=== PATIENT | female | born 1935 | race Caucasian/White ===

== ENCOUNTER 2018-11-26 17:06 | Inpatient (IN) ==
[2018-11-26] MEDS ORDERED: GLUCAGON 1 MG VIAL IM PRN (20:13)
[2018-11-26] MEDS ORDERED: ACETAMINOPHEN 325 MG TABLET PO PRN (20:13)
[2018-11-26] MEDS ORDERED: DOCUSATE SODIUM 100 MG CAPSULE PO PRN (20:13)
[2018-11-26] MEDS ORDERED: DEXTROSE 50% 25 GM/50 ML VIAL IV PRN (20:13)
[2018-11-26] MEDS ORDERED: ENOXAPARIN 30 MG/0.3 ML SYRINGE SUBCUT SCH (20:30)
[2018-11-26 20:53] LABS: Basophils # 0.1 10*3/uL (0.0-0.2); Basophils % 0.3 % (0.0-0.8); Hematocrit 35.8 VOL% (35.7-47.0); Hemoglobin 11.4 GM/DL (12.0-16.0); Immature Granulocytes % 1.1 %; Immature Granulocytes Absolute 0.35 #; Lymphocytes # 1.4 10*3/uL (1.4-4.0); Lymphocytes % 4.3 % (21.3-54.2); Mean Corpuscular HGB Conc 31.8 GM/DL (32-36); Mean Corpuscular Volume 90.6 FL (87-102); Monocytes % 5.2 % (1.7-12.7); Neutrophils % 89.1 % (38.7-73.9); Platelet Count 209 T/CUMM (130-400); Red Blood Count 3.95 MC/CUMM (3.8-5.5); Red Cell Distribution Width 14.2 % (9.3-17.3); White Blood Count 31.5 T/CUMM (4-12)
[2018-11-26] MEDS ORDERED: DILTIAZEM 50 MG/10 ML VIAL IV ONE (20:57)
[2018-11-26 21:03] LABS: Apearance,Urine CLOUDY (Clear); Bacteria,Urine Many /HPF (Few); Bilirubin,Urine Negative (Negative); Blood, Urine Moderate mg/dL (Negative); Glucose,Urine (UA) >=500 mg/dL (Negative); Ketones,Urine 5 mg/dL (Negative); Mucus,Urine Occasional /LPF (Occasional); Nitrite,Urine Positive (Negative); Protein,Urine 100 MG/DL; RBC,Urine 52 /HPF (0-4); Urine Color Yellow (Yellow); Urine Specific Gravity 1.015 (1.001-1.035); Urine Urobilinogen < 2.0 EU/DL (0.2-1.0); WBC,Urine 770 /HPF (0-6)
[2018-11-26 21:30] LABS: Lymphocytes 3 % (20-55); Segmented Neutrophils 94 % (50-85); Total Cells Counted 100
[2018-11-26] MEDS ORDERED: ENOXAPARIN 100 MG/ML SYRINGE SUBCUT SCH (21:30)
[2018-11-26 21:31] LABS: Platelet Estimate Normal; Troponin I 0.075 NG/ML (0.00-0.045)
[2018-11-26 21:32] LABS: Anisocytosis Slight
[2018-11-26] MEDS ORDERED: INFLUENZA VIRUS VACCINE 0.5 ML SYRINGE IM ONE (21:39)
[2018-11-26] MEDS: MEROPENEM 500 MG in SODIUM CHLORIDE 0.9% 100 ML IV SCH (22:11)
[2018-11-26] MEDS: SODIUM CHLORIDE 0.9% 1,000 ML IV SCH (22:11)
[2018-11-26] MEDS: dilTIAZem Drip 125 MG/125 ML PREMIX IV SCH (22:20)
[2018-11-26] MEDS: INSULIN REGULAR 100 UNIT/ML SUBCUT SCH (22:29)
[2018-11-26] MEDS ORDERED: VANCOMYCIN INJ 500 MG in SODIUM CHLORIDE 0.9% 100 ML IV PRN (22:33)
[2018-11-26] MEDS ORDERED: VANCOMYCIN INJ 2,000 MG in SODIUM CHLORIDE 0.9% 500 ML IV ONE (23:00)
[2018-11-27] MEDS: FLUCONAZOLE INJ 100 MG in IV BAG 1 EACH IV SCH ×2 (01:34→21:45)
[2018-11-27 05:05] LABS: Basophils # 0.2 10*3/uL (0.0-0.2); Basophils % 0.6 % (0.0-0.8); Hematocrit 31.3 VOL% (35.7-47.0); Immature Granulocytes % 1.5 %; Immature Granulocytes Absolute 0.46 #; Lymphocytes # 2.6 10*3/uL (1.4-4.0); Lymphocytes % 8.2 % (21.3-54.2); Mean Corpuscular HGB Conc 31.9 GM/DL (32-36); Mean Corpuscular Volume 90.7 FL (87-102); Monocytes % 6.5 % (1.7-12.7); Neutrophils % 83.2 % (38.7-73.9); Platelet Count 182 T/CUMM (130-400); Red Blood Count 3.45 MC/CUMM (3.8-5.5); Red Cell Distribution Width 14.3 % (9.3-17.3); White Blood Count 31.3 T/CUMM (4-12)
[2018-11-27 05:42] LABS: Alanine Aminotransferase 23 U/L (13-56); Albumin 3.1 G/DL (3.4-5.0); Alkaline Phosphatase 82 U/L (45-117); Aspartate Amino Transferase 23 U/L (0-37); Blood Urea Nitrogen 39 MG/DL (7-18); Calcium 8.1 MG/DL (8.5-10.1); Estimated Glom Filtration Rate 23 ML/MIN; Glucose 410 MG/DL (74-106); Osmolality,Calculated 291.4 MOS/KG (273-304); Total Protein 7.5 G/DL (6.4-8.3)
[2018-11-27 05:42] LABS: Hypochromasia 1+; Lymphocytes 12 % (20-55); Platelet Estimate Adequate; Segmented Neutrophils 83 % (50-85); Total Cells Counted 100
[2018-11-27] MEDS: MEROPENEM 500 MG in SODIUM CHLORIDE 0.9% 100 ML IV SCH ×2 (05:42→18:27)
[2018-11-27 05:43] LABS: Calcium 8.2 MG/DL (8.5-10.1); Osmolality,Calculated 286.2 MOS/KG (273-304); Thyroid Stimulating Hormone 0.45 uIU/ml (0.358-3.74)
[2018-11-27] MEDS ORDERED: MAGNESIUM SULF RIDER 2 GM in PREMIX 1 EACH IV ONE (05:46)
[2018-11-27] MEDS ORDERED: MAGNESIUM SULF RIDER 4 GM in PREMIX 1 EACH IV ONE (05:47)
[2018-11-27] MEDS: SODIUM CHLORIDE 0.9% 1,000 ML IV SCH ×3 (06:30→19:17)
[2018-11-27] MEDS: MAGNESIUM SULF RIDER 2 GM in PREMIX 1 EACH IV PRN ×2 (08:27→10:21)
[2018-11-27] MEDS: INSULIN REGULAR 100 UNIT/ML SUBCUT SCH ×4 (08:29→20:20)
[2018-11-27] MEDS ORDERED: DIGOXIN 0.125 MG TABLET PO SCH (09:00)
[2018-11-27] MEDS: ONDANSETRON 4 MG/2 ML VIAL IV PRN ×2 (09:05→11:30)
[2018-11-27] MEDS: INSULIN GLARGINE 100 UNIT/ML SUBCUT SCH (09:05)
[2018-11-27] MEDS: ASPIRIN EC 81 MG TABLET PO SCH (10:10)
[2018-11-27] MEDS: DONEPEZIL 10 MG TABLET PO SCH (10:10)
[2018-11-27] MEDS: METOPROLOL TARTRATE 25 MG TABLET PO SCH ×2 (10:11→20:21)
[2018-11-27] MEDS ORDERED: SODIUM CHLORIDE 0.9% 500 ML IV ONE (11:38)
[2018-11-27] MEDS: DOBUTamine 500 MG/250 ML PREMIX IV PRN (11:41)
[2018-11-27] MEDS: ENOXAPARIN 100 MG/ML SYRINGE SUBCUT SCH (20:21)
[2018-11-28] MEDS: dilTIAZem Drip 125 MG/125 ML PREMIX IV SCH ×2 (01:00→21:47)
[2018-11-28] MEDS: DOBUTamine 500 MG/250 ML PREMIX IV PRN (01:20)
[2018-11-28] MEDS: SODIUM CHLORIDE 0.9% 1,000 ML IV SCH ×3 (02:55→11:36)
[2018-11-28 04:46] LABS: Basophils # 0.1 10*3/uL (0.0-0.2); Basophils % 0.5 % (0.0-0.8); Eosinophils # 0.1 10*3/uL (0.0-0.87); Eosinophils % 0.3 % (0.00-10.9); Hematocrit 27.9 VOL% (35.7-47.0); Hemoglobin 8.7 GM/DL (12.0-16.0); Immature Granulocytes Absolute 0.25 #; Lymphocytes # 2.5 10*3/uL (1.4-4.0); Lymphocytes % 10.3 % (21.3-54.2); Mean Corpuscular HGB Conc 31.2 GM/DL (32-36); Mean Corpuscular Volume 93.6 FL (87-102); Mean Platelet Volume 11.2 FL (9.6-12.0); Monocytes % 7.1 % (1.7-12.7); Neutrophils % 80.8 % (38.7-73.9); Platelet Count 144 T/CUMM (130-400); Red Blood Count 2.98 MC/CUMM (3.8-5.5); Red Cell Distribution Width 14.7 % (9.3-17.3); White Blood Count 24.1 T/CUMM (4-12)
[2018-11-28 05:12] LABS: Calcium 7.4 MG/DL (8.5-10.1); Osmolality,Calculated 287.1 MOS/KG (273-304)
[2018-11-28 05:21] LABS: Band Neutrophils 1 % (0-10); Hypochromasia 1+; Lymphocytes 9 % (20-55); Segmented Neutrophils 83 % (50-85); Total Cells Counted 100
[2018-11-28 05:22] LABS: Burr Cells Slight; Microcytosis Slight; Ovalocytes Slight; Platelet Estimate Adequate
[2018-11-28] MEDS: MEROPENEM 500 MG in SODIUM CHLORIDE 0.9% 100 ML IV SCH ×2 (05:38→18:10)
[2018-11-28] MEDS: DONEPEZIL 10 MG TABLET PO SCH (09:21)
[2018-11-28] MEDS: ASPIRIN EC 81 MG TABLET PO SCH (09:21)
[2018-11-28] MEDS: ONDANSETRON 4 MG/2 ML VIAL IV PRN (09:21)
[2018-11-28] MEDS: INSULIN GLARGINE 100 UNIT/ML SUBCUT SCH (09:22)
[2018-11-28] MEDS: INSULIN REGULAR 100 UNIT/ML SUBCUT SCH ×4 (09:22→21:39)
[2018-11-28] MEDS: METOPROLOL TARTRATE 25 MG TABLET PO SCH ×2 (09:23→23:46)
[2018-11-28] MEDS: NOREPINEPHRINE 16 MG in SODIUM CHLORIDE 0.9% 234 ML IV PRN (09:29)
[2018-11-28] MEDS: CIPROFLOXACIN 100 MG/ML 100 ML/BOTTLE PER TUBE SCH (14:00)
[2018-11-28] MEDS ORDERED: VANCOMYCIN INJ 1,500 MG in SODIUM CHLORIDE 0.9% 500 ML IV ONE (17:00)
[2018-11-28] MEDS: CLORAZEPATE 3.75 MG TABLET PO PRN (19:45)
[2018-11-28] MEDS ORDERED: LORazepam 2 MG/1 ML VIAL ONE (20:24)
[2018-11-28] MEDS: LORazepam 2 MG/1 ML VIAL IV PRN (20:39)
[2018-11-28] MEDS: ENOXAPARIN 100 MG/ML SYRINGE SUBCUT SCH (21:39)
[2018-11-28] MEDS: FLUCONAZOLE INJ 100 MG in IV BAG 1 EACH IV SCH (21:45)
[2018-11-29] MEDS: SODIUM CHLORIDE 0.9% 1,000 ML IV SCH ×2 (00:57→16:30)
[2018-11-29] MEDS: LORazepam 2 MG/1 ML VIAL IV PRN ×2 (04:05→04:39)
[2018-11-29] MEDS: NOREPINEPHRINE 16 MG in SODIUM CHLORIDE 0.9% 234 ML IV PRN (05:39)
[2018-11-29 05:44] LABS: Basophils # 0.1 10*3/uL (0.0-0.2); Basophils % 0.3 % (0.0-0.8); Eosinophils # 0.1 10*3/uL (0.0-0.87); Eosinophils % 0.4 % (0.00-10.9); Hematocrit 31.4 VOL% (35.7-47.0); Hemoglobin 9.8 GM/DL (12.0-16.0); Immature Granulocytes % 1.2 %; Immature Granulocytes Absolute 0.28 #; Lymphocytes # 1.4 10*3/uL (1.4-4.0); Lymphocytes % 5.8 % (21.3-54.2); Mean Corpuscular HGB Conc 31.2 GM/DL (32-36); Mean Corpuscular Volume 93.2 FL (87-102); Mean Platelet Volume 11.4 FL (9.6-12.0); Monocytes % 7.6 % (1.7-12.7); Neutrophils % 84.7 % (38.7-73.9); Platelet Count 204 T/CUMM (130-400); Red Blood Count 3.37 MC/CUMM (3.8-5.5); Red Cell Distribution Width 14.5 % (9.3-17.3); White Blood Count 23.1 T/CUMM (4-12)
[2018-11-29] MEDS: MEROPENEM 500 MG in SODIUM CHLORIDE 0.9% 100 ML IV SCH ×2 (05:46→18:03)
[2018-11-29 05:56] LABS: Calcium 7.4 MG/DL (8.5-10.1); Osmolality,Calculated 287.4 MOS/KG (273-304)
[2018-11-29 06:06] LABS: Band Neutrophils 2 % (0-10); Burr Cells Slight; Eosinophils 1 % (0-10); Hypochromasia Slight; Lymphocytes 4 % (20-55); Microcytosis Slight; Ovalocytes Slight; Platelet Estimate Adequate; Segmented Neutrophils 84 % (50-85); Total Cells Counted 100
[2018-11-29] MEDS: DONEPEZIL 10 MG TABLET PO SCH (08:40)
[2018-11-29] MEDS: INSULIN REGULAR 100 UNIT/ML SUBCUT SCH ×4 (08:40→20:13)
[2018-11-29] MEDS: INSULIN GLARGINE 100 UNIT/ML SUBCUT SCH (08:40)
[2018-11-29] MEDS: CIPROFLOXACIN 100 MG/ML 100 ML/BOTTLE PER TUBE SCH (08:40)
[2018-11-29] MEDS: ASPIRIN EC 81 MG TABLET PO SCH (08:40)
[2018-11-29] MEDS: METOPROLOL TARTRATE 25 MG TABLET PO SCH ×2 (08:40→20:13)
[2018-11-29] MEDS: DESITIN 4OZ/NYSTATIN 15 GRAM MIXTURE PASTE TOP SCH ×2 (18:04→20:14)
[2018-11-29] MEDS ORDERED: FUROSEMIDE 40 MG/4 ML VIAL IV ONE (19:20)
[2018-11-29 20:04] LABS: ABG Base Excess -11.6 MMOL/L (-2.5-2.5); ABG HCO3 14.1 MMOL/L (20-26); ABG Oxygen Saturation 95.9 % (95-100); ABG PCO2 31.4 MM HG (35-48); ABG PO2 84.5 MM HG (80-95); ABG TCO2 15.1 MMOL/L (23-27); Allen Test Positive
[2018-11-29] MEDS ORDERED: SODIUM BICARBONATE 50 MEQ/50 ML VIAL IV ONE (20:14)
[2018-11-29] MEDS: ENOXAPARIN 100 MG/ML SYRINGE SUBCUT SCH (20:14)
[2018-11-29] MEDS: CLORAZEPATE 3.75 MG TABLET PO PRN (20:27)
[2018-11-29] MEDS: FLUCONAZOLE INJ 100 MG in IV BAG 1 EACH IV SCH (22:18)
[2018-11-30] MEDS ORDERED: ALBUTEROL/IPRATROPIUM 3 ML NEB RESP TX SCH (01:00)
[2018-11-30] MEDS: ALBUTEROL/IPRATROPIUM 3 ML NEB RESP TX SCH ×4 (01:11→19:55)
[2018-11-30 04:11] LABS: Basophils # 0.1 10*3/uL (0.0-0.2); Basophils % 0.3 % (0.0-0.8); Eosinophils # 0.1 10*3/uL (0.0-0.87); Eosinophils % 0.5 % (0.00-10.9); Hematocrit 31.2 VOL% (35.7-47.0); Hemoglobin 9.6 GM/DL (12.0-16.0); Immature Granulocytes % 0.7 %; Immature Granulocytes Absolute 0.13 #; Lymphocytes # 1.8 10*3/uL (1.4-4.0); Mean Corpuscular HGB Conc 30.8 GM/DL (32-36); Mean Platelet Volume 10.6 FL (9.6-12.0); Monocytes % 7.9 % (1.7-12.7); Neutrophils % 80.6 % (38.7-73.9); Platelet Count 190 T/CUMM (130-400); Red Blood Count 3.39 MC/CUMM (3.8-5.5); Red Cell Distribution Width 14.6 % (9.3-17.3); White Blood Count 17.7 T/CUMM (4-12)
[2018-11-30 04:34] LABS: Calcium 7.6 MG/DL (8.5-10.1)
[2018-11-30] MEDS: MEROPENEM 500 MG in SODIUM CHLORIDE 0.9% 100 ML IV SCH ×2 (05:24→17:43)
[2018-11-30] MEDS: INSULIN REGULAR 100 UNIT/ML SUBCUT SCH ×4 (07:50→20:21)
[2018-11-30] MEDS: ASPIRIN EC 81 MG TABLET PO SCH (09:11)
[2018-11-30] MEDS: METOPROLOL TARTRATE 25 MG TABLET PO SCH ×2 (09:11→20:21)
[2018-11-30] MEDS: DONEPEZIL 10 MG TABLET PO SCH (09:11)
[2018-11-30] MEDS: INSULIN GLARGINE 100 UNIT/ML SUBCUT SCH (09:11)
[2018-11-30] MEDS: CIPROFLOXACIN 100 MG/ML 100 ML/BOTTLE PER TUBE SCH (09:15)
[2018-11-30] MEDS: DESITIN 4OZ/NYSTATIN 15 GRAM MIXTURE PASTE TOP SCH ×2 (09:16→20:21)
[2018-11-30] MEDS: LORazepam 2 MG/1 ML VIAL IV PRN ×2 (19:18→23:16)
[2018-11-30] MEDS: ENOXAPARIN 100 MG/ML SYRINGE SUBCUT SCH (20:21)
[2018-11-30] MEDS: FLUCONAZOLE INJ 100 MG in IV BAG 1 EACH IV SCH (22:47)
[2018-12-01] MEDS: ALBUTEROL/IPRATROPIUM 3 ML NEB RESP TX SCH ×4 (00:26→20:04)
[2018-12-01 04:09] LABS: Calcium 8.1 MG/DL (8.5-10.1); Osmolality,Calculated 286.2 MOS/KG (273-304)
[2018-12-01 04:13] LABS: Basophils # 0.1 10*3/uL (0.0-0.2); Basophils % 0.5 % (0.0-0.8); Eosinophils # 0.2 10*3/uL (0.0-0.87); Eosinophils % 1.1 % (0.00-10.9); Hematocrit 31.4 VOL% (35.7-47.0); Hemoglobin 9.9 GM/DL (12.0-16.0); Immature Granulocytes % 0.8 %; Immature Granulocytes Absolute 0.15 #; Lymphocytes # 1.9 10*3/uL (1.4-4.0); Lymphocytes % 10.1 % (21.3-54.2); Mean Corpuscular HGB Conc 31.5 GM/DL (32-36); Mean Corpuscular Volume 91.3 FL (87-102); Mean Platelet Volume 10.7 FL (9.6-12.0); Neutrophils % 79.5 % (38.7-73.9); Platelet Count 231 T/CUMM (130-400); Red Blood Count 3.44 MC/CUMM (3.8-5.5); Red Cell Distribution Width 14.6 % (9.3-17.3); White Blood Count 18.9 T/CUMM (4-12)
[2018-12-01] MEDS ORDERED: hydrALAZINE 20 MG/1 ML VIAL IV ONE (05:08)
[2018-12-01] MEDS: MEROPENEM 500 MG in SODIUM CHLORIDE 0.9% 100 ML IV SCH ×2 (05:45→16:09)
[2018-12-01 07:35] LABS: ABG Base Excess -10.8 MMOL/L (-2.5-2.5); ABG HCO3 15.9 MMOL/L (20-26); ABG PCO2 33.1 MM HG (35-48); ABG PH 7.271 (7.35-7.45); ABG PO2 93.1 MM HG (80-95); ABG TCO2 13.9 MMOL/L (23-27); Allen Test Positive; Pt O2 Delivery Device Other
[2018-12-01] MEDS ORDERED: ETOMIDATE 20 MG/10 ML VIAL IV ONE ×2 (08:00→08:23)
[2018-12-01] MEDS ORDERED: DEXTROSE 10% 250 ML IV ONE (08:01)
[2018-12-01] MEDS: INSULIN REGULAR 100 UNIT/ML SUBCUT SCH ×3 (08:13→18:48)
[2018-12-01] MEDS: DEXTROSE 10% 250 ML BAG IV PRN (08:15)
[2018-12-01] MEDS ORDERED: MIDAZOLAM 2 MG/2 ML VIAL ONE (08:24)
[2018-12-01] MEDS ORDERED: HEPARIN/NACL 0.9% 2 UNITS/ML 500 ML IV ONE (08:41)
[2018-12-01] MEDS ORDERED: VECURONIUM 10 MG VIAL IV ONE (08:53)
[2018-12-01] MEDS: MIDAZOLAM 100 MG in SODIUM CHLORIDE 0.9% 80 ML IV PRN (09:00)
[2018-12-01] MEDS ORDERED: FUROSEMIDE 100 MG/10 ML VIAL IV ONE (09:45)
[2018-12-01] MEDS ORDERED: MIDAZOLAM 2 MG/2 ML VIAL IV STA (10:37)
[2018-12-01] MEDS ORDERED: VECURONIUM 10 MG VIAL IV STA ×2 (10:37)
[2018-12-01] MEDS: INSULIN GLARGINE 100 UNIT/ML SUBCUT SCH (10:48)
[2018-12-01] MEDS: ASPIRIN EC 81 MG TABLET PO SCH (11:08)
[2018-12-01] MEDS: METOPROLOL TARTRATE 25 MG TABLET PO SCH ×2 (11:08→21:18)
[2018-12-01] MEDS: DONEPEZIL 10 MG TABLET PO SCH (11:08)
[2018-12-01] MEDS: CIPROFLOXACIN 100 MG/ML 100 ML/BOTTLE PER TUBE SCH (11:09)
[2018-12-01] MEDS: DESITIN 4OZ/NYSTATIN 15 GRAM MIXTURE PASTE TOP SCH ×2 (11:10→21:18)
[2018-12-01] MEDS ORDERED: PROPOFOL 1,000 MG/100 ML BOTTLE IV PRN (12:30)
[2018-12-01] MEDS ORDERED: VANCOMYCIN INJ 1,500 MG in SODIUM CHLORIDE 0.9% 500 ML IV PRN (14:14)
[2018-12-01] MEDS: CIPROFLOXACIN INJ 400 MG in PREMIX 1 EACH IV SCH (14:19)
[2018-12-01 14:34] LABS: ABG Base Excess -9.9 MMOL/L (-2.5-2.5); ABG HCO3 16.6 MMOL/L (20-26); ABG Oxygen Saturation 99.8 % (95-100); ABG PCO2 31.4 MM HG (35-48); ABG PH 7.303 (7.35-7.45); ABG TCO2 14.2 MMOL/L (23-27)
[2018-12-01] MEDS: SODIUM CHLORIDE 23.4% CONC INJ 38.5 MEQ, SODIUM BICARB INJ 100 MEQ in STERILE WATER INJ... IV SCH (15:00)
[2018-12-01] MEDS ORDERED: VANCOMYCIN INJ 1,500 MG in SODIUM CHLORIDE 0.9% 500 ML IV ONE (15:00)
[2018-12-01 15:26] LABS: Calcium 7.5 MG/DL (8.5-10.1)
[2018-12-01] MEDS: ENOXAPARIN 100 MG/ML SYRINGE SUBCUT SCH (21:18)
[2018-12-01] MEDS: FLUCONAZOLE INJ 100 MG in IV BAG 1 EACH IV SCH (22:34)
[2018-12-02] MEDS: DEXTROSE 10% 250 ML BAG IV PRN ×2 (00:06→10:24)
[2018-12-02] MEDS: INSULIN REGULAR 100 UNIT/ML SUBCUT SCH ×4 (00:10→17:49)
[2018-12-02] MEDS: ALBUTEROL/IPRATROPIUM 3 ML NEB RESP TX SCH ×4 (00:50→19:09)
[2018-12-02] MEDS: MEROPENEM 500 MG in SODIUM CHLORIDE 0.9% 100 ML IV SCH (03:58)
[2018-12-02 04:52] LABS: ABG Base Excess -5.5 MMOL/L (-2.5-2.5); ABG Oxygen Saturation 99.5 % (95-100); ABG PCO2 32.6 MM HG (35-48); ABG PH 7.369 (7.35-7.45); ABG TCO2 16.3 MMOL/L (23-27)
[2018-12-02 04:57] LABS: Basophils # 0.1 10*3/uL (0.0-0.2); Basophils % 0.5 % (0.0-0.8); Eosinophils # 0.3 10*3/uL (0.0-0.87); Eosinophils % 2.3 % (0.00-10.9); Hematocrit 30.5 VOL% (35.7-47.0); Hemoglobin 9.2 GM/DL (12.0-16.0); Immature Granulocytes % 0.8 %; Lymphocytes # 1.4 10*3/uL (1.4-4.0); Lymphocytes % 11.2 % (21.3-54.2); Mean Corpuscular HGB Conc 30.2 GM/DL (32-36); Mean Corpuscular Volume 96.2 FL (87-102); Mean Platelet Volume 10.1 FL (9.6-12.0); Monocytes % 9.7 % (1.7-12.7); Neutrophils % 75.5 % (38.7-73.9); Platelet Count 216 T/CUMM (130-400); Red Blood Count 3.17 MC/CUMM (3.8-5.5); Red Cell Distribution Width 14.6 % (9.3-17.3); White Blood Count 12.8 T/CUMM (4-12)
[2018-12-02 05:02] LABS: Calcium 7.7 MG/DL (8.5-10.1); Osmolality,Calculated 296.7 MOS/KG (273-304)
[2018-12-02] MEDS: SODIUM CHLORIDE 23.4% CONC INJ 38.5 MEQ, SODIUM BICARB INJ 100 MEQ in STERILE WATER INJ... IV SCH ×2 (05:57→20:36)
[2018-12-02] MEDS: DONEPEZIL 10 MG TABLET PO SCH (08:19)
[2018-12-02] MEDS: METOPROLOL TARTRATE 25 MG TABLET PO SCH ×2 (08:19→21:01)
[2018-12-02] MEDS: ASPIRIN EC 81 MG TABLET PO SCH (08:19)
[2018-12-02] MEDS: DESITIN 4OZ/NYSTATIN 15 GRAM MIXTURE PASTE TOP SCH ×2 (08:19→21:02)
[2018-12-02] MEDS: INSULIN GLARGINE 100 UNIT/ML SUBCUT SCH (10:26)
[2018-12-02] MEDS: MIDAZOLAM 100 MG in SODIUM CHLORIDE 0.9% 80 ML IV PRN (12:04)
[2018-12-02] MEDS: CIPROFLOXACIN INJ 400 MG in PREMIX 1 EACH IV SCH (13:13)
[2018-12-02] MEDS: ENOXAPARIN 100 MG/ML SYRINGE SUBCUT SCH (21:01)
[2018-12-02] MEDS: FLUCONAZOLE INJ 100 MG in IV BAG 1 EACH IV SCH (21:01)
[2018-12-03] MEDS: INSULIN REGULAR 100 UNIT/ML SUBCUT SCH ×4 (00:07→17:57)
[2018-12-03] MEDS: ALBUTEROL/IPRATROPIUM 3 ML NEB RESP TX SCH ×4 (01:25→19:34)
[2018-12-03 04:17] LABS: ABG Base Excess -1.8 MMOL/L (-2.5-2.5); ABG HCO3 22.2 MMOL/L (20-26); ABG Oxygen Saturation 97.4 % (95-100); ABG PCO2 34.4 MM HG (35-48); ABG PH 7.427 (7.35-7.45); ABG PO2 108.3 MM HG (80-95); ABG TCO2 23.2 MMOL/L (23-27)
[2018-12-03 04:38] LABS: Calcium 8.3 MG/DL (8.5-10.1)
[2018-12-03 04:51] LABS: Prealbumin 10.8 MG/DL (20-40)
[2018-12-03 07:52] LABS: Basophils # 0.1 10*3/uL (0.0-0.2); Basophils % 0.5 % (0.0-0.8); Eosinophils # 0.3 10*3/uL (0.0-0.87); Eosinophils % 2.8 % (0.00-10.9); Hematocrit 27.6 VOL% (35.7-47.0); Immature Granulocytes Absolute 0.12 #; Lymphocytes # 1.9 10*3/uL (1.4-4.0); Lymphocytes % 16.9 % (21.3-54.2); Mean Corpuscular HGB Conc 32.6 GM/DL (32-36); Mean Corpuscular Volume 88.7 FL (87-102); Mean Platelet Volume 9.8 FL (9.6-12.0); Neutrophils % 67.8 % (38.7-73.9); Platelet Count 276 T/CUMM (130-400); Red Blood Count 3.11 MC/CUMM (3.8-5.5); Red Cell Distribution Width 14.5 % (9.3-17.3); White Blood Count 11.5 T/CUMM (4-12)
[2018-12-03] MEDS: INSULIN GLARGINE 100 UNIT/ML SUBCUT SCH (08:00)
[2018-12-03] MEDS: DONEPEZIL 10 MG TABLET PO SCH (08:00)
[2018-12-03] MEDS: METOPROLOL TARTRATE 25 MG TABLET PO SCH ×2 (08:00→21:06)
[2018-12-03] MEDS: ASPIRIN CHEW 81 MG TABLET PO SCH (08:01)
[2018-12-03] MEDS: DESITIN 4OZ/NYSTATIN 15 GRAM MIXTURE PASTE TOP SCH ×2 (08:01→21:06)
[2018-12-03 08:34] LABS: Calcium 8.2 MG/DL (8.5-10.1)
[2018-12-03] MEDS: SODIUM CHLORIDE 23.4% CONC INJ 38.5 MEQ, SODIUM BICARB INJ 50 MEQ in STERILE WATER INJ ... IV SCH (12:20)
[2018-12-03] MEDS: CIPROFLOXACIN INJ 400 MG in PREMIX 1 EACH IV SCH (13:51)
[2018-12-03] MEDS: ENOXAPARIN 100 MG/ML SYRINGE SUBCUT SCH (21:05)
[2018-12-03] MEDS: FLUCONAZOLE INJ 100 MG in IV BAG 1 EACH IV SCH (21:06)
[2018-12-03] MEDS: MIDAZOLAM 100 MG in SODIUM CHLORIDE 0.9% 80 ML IV PRN (22:41)
[2018-12-04] MEDS: INSULIN REGULAR 100 UNIT/ML SUBCUT SCH ×3 (00:46→11:20)
[2018-12-04] MEDS: ALBUTEROL/IPRATROPIUM 3 ML NEB RESP TX SCH ×4 (01:49→19:43)
[2018-12-04 04:29] LABS: ABG Base Excess 1.1 MMOL/L (-2.5-2.5); ABG HCO3 25.4 MMOL/L (20-26); ABG Oxygen Saturation 98.9 % (95-100); ABG PH 7.447 (7.35-7.45); ABG TCO2 22.2 MMOL/L (23-27)
[2018-12-04 04:31] LABS: Basophils # 0.1 10*3/uL (0.0-0.2); Basophils % 0.5 % (0.0-0.8); Eosinophils # 0.5 10*3/uL (0.0-0.87); Eosinophils % 4.6 % (0.00-10.9); Hematocrit 25.6 VOL% (35.7-47.0); Hemoglobin 8.4 GM/DL (12.0-16.0); Immature Granulocytes % 1.2 %; Immature Granulocytes Absolute 0.12 #; Lymphocytes # 1.7 10*3/uL (1.4-4.0); Mean Corpuscular HGB Conc 32.8 GM/DL (32-36); Mean Corpuscular Volume 88.9 FL (87-102); Mean Platelet Volume 9.9 FL (9.6-12.0); Monocytes % 14.5 % (1.7-12.7); Neutrophils % 62.2 % (38.7-73.9); Platelet Count 287 T/CUMM (130-400); Red Blood Count 2.88 MC/CUMM (3.8-5.5); Red Cell Distribution Width 14.4 % (9.3-17.3); White Blood Count 9.8 T/CUMM (4-12)
[2018-12-04 04:48] LABS: Calcium 8.2 MG/DL (8.5-10.1)
[2018-12-04] MEDS: INSULIN GLARGINE 100 UNIT/ML SUBCUT SCH (09:00)
[2018-12-04] MEDS: ASPIRIN CHEW 81 MG TABLET PO SCH (09:20)
[2018-12-04] MEDS: METOPROLOL TARTRATE 25 MG TABLET PO SCH ×3 (09:20→20:13)
[2018-12-04] MEDS: DONEPEZIL 10 MG TABLET PO SCH (09:20)
[2018-12-04] MEDS: SODIUM CHLORIDE 23.4% CONC INJ 38.5 MEQ, SODIUM BICARB INJ 50 MEQ in STERILE WATER INJ ... IV SCH (09:25)
[2018-12-04] MEDS ORDERED: INSULIN GLARGINE 100 UNIT/ML SUBCUT ONE (10:00)
[2018-12-04] MEDS: DESITIN 4OZ/NYSTATIN 15 GRAM MIXTURE PASTE TOP SCH ×2 (11:45→20:32)
[2018-12-04] MEDS: CIPROFLOXACIN INJ 400 MG in PREMIX 1 EACH IV SCH (13:55)
[2018-12-04] MEDS: INSULIN LISPRO 100 UNIT/ML SUBCUT SCH ×2 (16:50→20:13)
[2018-12-04] MEDS ORDERED: ENOXAPARIN 30 MG/0.3 ML SYRINGE SUBCUT SCH (21:00)
[2018-12-05] MEDS: INSULIN LISPRO 100 UNIT/ML SUBCUT SCH ×5 (00:09→15:10)
[2018-12-05] MEDS: ALBUTEROL/IPRATROPIUM 3 ML NEB RESP TX SCH ×3 (01:19→13:00)
[2018-12-05 03:25] LABS: ABG HCO3 27.1 MMOL/L (20-26); ABG Oxygen Saturation 99.2 % (95-100); ABG PCO2 38.4 MM HG (35-48); ABG PH 7.455 (7.35-7.45); ABG TCO2 25.1 MMOL/L (23-27)
[2018-12-05 03:27] LABS: Basophils # 0.1 10*3/uL (0.0-0.2); Basophils % 0.5 % (0.0-0.8); Eosinophils # 0.6 10*3/uL (0.0-0.87); Eosinophils % 4.2 % (0.00-10.9); Hematocrit 26.4 VOL% (35.7-47.0); Hemoglobin 8.7 GM/DL (12.0-16.0); Immature Granulocytes % 1.7 %; Immature Granulocytes Absolute 0.22 #; Lymphocytes % 14.8 % (21.3-54.2); Mean Corpuscular Volume 89.2 FL (87-102); Mean Platelet Volume 9.9 FL (9.6-12.0); Monocytes % 12.8 % (1.7-12.7); Platelet Count 330 T/CUMM (130-400); Red Blood Count 2.96 MC/CUMM (3.8-5.5); Red Cell Distribution Width 14.3 % (9.3-17.3); White Blood Count 13.3 T/CUMM (4-12)
[2018-12-05 03:47] LABS: Calcium 8.5 MG/DL (8.5-10.1); Prealbumin 14.4 MG/DL (20-40)
[2018-12-05] MEDS: SODIUM CHLORIDE 23.4% CONC INJ 38.5 MEQ, SODIUM BICARB INJ 50 MEQ in STERILE WATER INJ ... IV SCH (05:19)
[2018-12-05] MEDS: ASPIRIN CHEW 81 MG TABLET PO SCH (08:45)
[2018-12-05] MEDS: METOPROLOL TARTRATE 25 MG TABLET PO SCH ×2 (08:45→14:25)
[2018-12-05] MEDS: DONEPEZIL 10 MG TABLET PO SCH (08:45)
[2018-12-05] MEDS ORDERED: INSULIN GLARGINE 100 UNIT/ML SUBCUT ONE (09:00)
[2018-12-05] MEDS ORDERED: INSULIN GLARGINE 100 UNIT/ML SUBCUT SCH (09:00)
[2018-12-05] MEDS ORDERED: FUROSEMIDE 40 MG/4 ML VIAL IV ONE (09:00)
[2018-12-05] MEDS: DESITIN 4OZ/NYSTATIN 15 GRAM MIXTURE PASTE TOP SCH (09:05)
[2018-12-05 20:08] VITALS: BP 112/64
[2018-12-06] MEDS ORDERED: INSULIN GLARGINE 100 UNIT/ML SUBCUT SCH (09:00)
== END 2018-12-05 16:29 | DRG 870 ==
LOC: SUATTDRO 19:37 → N.ICU 19:37
PROVIDERS: ADMIT Internal Medicine; ATTEND Family Medicine

== ENCOUNTER 2019-02-24 00:57 | Inpatient (IN) ==
[2019-02-24] MEDS ORDERED: ALBUTEROL 2.5 MG/3 ML NEB RESP TX PRN (04:47)
[2019-02-24] MEDS ORDERED: DEXTROSE 10% 250 ML BAG IV PRN (04:52)
[2019-02-24] MEDS ORDERED: GLUCAGON 1 MG VIAL IM PRN (04:52)
[2019-02-24] MEDS ORDERED: ONDANSETRON 4 MG/2 ML VIAL IV PRN (04:52)
[2019-02-24] MEDS ORDERED: METOCLOPRAMIDE 10 MG/2 ML VIAL IV ONE (06:01)
[2019-02-24 06:17] LABS: ABG Base Excess 2.4 MMOL/L (-2.5-2.5); ABG HCO3 26.5 MMOL/L (20-26); ABG Oxygen Saturation 94.3 % (95-100); ABG PCO2 40.9 MM HG (35-48); ABG PH 7.426 (7.35-7.45); ABG PO2 69.2 MM HG (80-95); ABG TCO2 24.4 MMOL/L (23-27); Allen Test Positive
[2019-02-24] MEDS: LEVOFLOXACIN INJ 750 MG in PREMIX 1 EACH IV SCH (06:24)
[2019-02-24] MEDS ORDERED: METOPROLOL TARTRATE 5 MG/5 ML VIAL IV ONE (06:26)
[2019-02-24 06:33] LABS: Basophils # 0.1 10*3/uL (0.0-0.2); Basophils % 0.6 % (0.0-0.8); Eosinophils # 0.1 10*3/uL (0.0-0.87); Eosinophils % 0.6 % (0.00-10.9); Hematocrit 30.7 VOL% (35.7-47.0); Hemoglobin 9.8 GM/DL (12.0-16.0); Immature Granulocytes % 0.7 %; Immature Granulocytes Absolute 0.09 #; Lymphocytes # 2.5 10*3/uL (1.4-4.0); Lymphocytes % 18.7 % (21.3-54.2); Mean Corpuscular HGB Conc 31.9 GM/DL (32-36); Mean Corpuscular Volume 92.2 FL (87-102); Mean Platelet Volume 10.7 FL (9.6-12.0); Monocytes % 9.6 % (1.7-12.7); Neutrophils % 69.8 % (38.7-73.9); Platelet Count 289 T/CUMM (130-400); Red Blood Count 3.33 MC/CUMM (3.8-5.5); Red Cell Distribution Width 16.6 % (9.3-17.3); White Blood Count 13.4 T/CUMM (4-12)
[2019-02-24 06:58] LABS: Albumin 2.8 G/DL (3.4-5.0); Bilirubin,Total 1.4 MG/DL (0.2-1.0); Osmolality,Calculated 292.7 MOS/KG (273-304); Total Protein 6.9 G/DL (6.4-8.3)
[2019-02-24] MEDS: ALBUTEROL/IPRATROPIUM 3 ML NEB RESP TX SCH ×3 (06:59→19:13)
[2019-02-24 07:14] LABS: Thyroid Stimulating Hormone 1.66 uIU/ml (0.358-3.74)
[2019-02-24] MEDS: DONEPEZIL 5 MG TABLET PO SCH (09:46)
[2019-02-24] MEDS: METOPROLOL TARTRATE 25 MG TABLET PO SCH ×2 (09:46→22:30)
[2019-02-24] MEDS: predniSONE 5 MG TABLET PO SCH (09:46)
[2019-02-24] MEDS: DOCUSATE SODIUM 100 MG CAPSULE PO SCH ×2 (09:46→22:31)
[2019-02-24] MEDS: ASPIRIN EC 81 MG TABLET PO SCH (09:46)
[2019-02-24] MEDS: FUROSEMIDE 40 MG/4 ML VIAL IV SCH ×2 (09:47→17:23)
[2019-02-24] MEDS: INSULIN GLARGINE 100 UNIT/ML SUBCUT SCH (09:47)
[2019-02-24] MEDS: INSULIN LISPRO 100 UNIT/ML SUBCUT SCH ×3 (09:47→17:22)
[2019-02-24] MEDS: ENOXAPARIN 30 MG/0.3 ML SYRINGE SUBCUT SCH (09:48)
[2019-02-24] MEDS: AZTREONAM 2,000 MG in SODIUM CHLORIDE 0.9% 100 ML IV SCH ×3 (09:48→21:13)
[2019-02-24] MEDS: ACETAMINOPHEN 325 MG TABLET PO PRN (21:19)
[2019-02-24] MEDS: traZODone 50 MG TABLET PO SCH (22:30)
[2019-02-24] MEDS: ENOXAPARIN 60 MG/0.6 ML SYRINGE SUBCUT SCH (22:32)
[2019-02-25] MEDS: INSULIN LISPRO 100 UNIT/ML SUBCUT SCH ×5 (00:10→23:31)
[2019-02-25] MEDS: ALBUTEROL/IPRATROPIUM 3 ML NEB RESP TX SCH ×4 (01:06→20:30)
[2019-02-25] MEDS: AZTREONAM 2,000 MG in SODIUM CHLORIDE 0.9% 100 ML IV SCH ×3 (03:31→23:41)
[2019-02-25 04:43] LABS: Basophils # 0.1 10*3/uL (0.0-0.2); Basophils % 0.6 % (0.0-0.8); Eosinophils # 0.2 10*3/uL (0.0-0.87); Eosinophils % 1.7 % (0.00-10.9); Hematocrit 31.4 VOL% (35.7-47.0); Hemoglobin 9.8 GM/DL (12.0-16.0); Immature Granulocytes % 0.6 %; Immature Granulocytes Absolute 0.08 #; Lymphocytes # 2.6 10*3/uL (1.4-4.0); Lymphocytes % 20.4 % (21.3-54.2); Mean Corpuscular HGB Conc 31.2 GM/DL (32-36); Mean Corpuscular Volume 92.4 FL (87-102); Mean Platelet Volume 10.6 FL (9.6-12.0); Monocytes % 9.9 % (1.7-12.7); Neutrophils % 66.8 % (38.7-73.9); Platelet Count 306 T/CUMM (130-400); Red Cell Distribution Width 16.5 % (9.3-17.3); White Blood Count 12.8 T/CUMM (4-12)
[2019-02-25 05:01] LABS: Calcium 8.7 MG/DL (8.5-10.1); Osmolality,Calculated 291.8 MOS/KG (273-304)
[2019-02-25] MEDS: ACETAMINOPHEN 325 MG TABLET PO PRN ×2 (05:23→21:25)
[2019-02-25] MEDS: LEVOFLOXACIN INJ 750 MG in PREMIX 1 EACH IV SCH (05:23)
[2019-02-25] MEDS: DOCUSATE SODIUM 100 MG CAPSULE PO SCH ×2 (08:41→21:24)
[2019-02-25] MEDS: METOPROLOL TARTRATE 25 MG TABLET PO SCH ×2 (08:41→21:23)
[2019-02-25] MEDS: DONEPEZIL 5 MG TABLET PO SCH (08:41)
[2019-02-25] MEDS: ENOXAPARIN 60 MG/0.6 ML SYRINGE SUBCUT SCH (08:42)
[2019-02-25] MEDS: INSULIN GLARGINE 100 UNIT/ML SUBCUT SCH (08:42)
[2019-02-25] MEDS: ASPIRIN EC 81 MG TABLET PO SCH (08:42)
[2019-02-25] MEDS: predniSONE 5 MG TABLET PO SCH (08:43)
[2019-02-25] MEDS: ENOXAPARIN 30 MG/0.3 ML SYRINGE SUBCUT SCH (08:43)
[2019-02-25] MEDS: FUROSEMIDE 40 MG/4 ML VIAL IV SCH ×2 (10:15→16:25)
[2019-02-25] MEDS: POTASSIUM CHLORIDE 20 MEQ TABLET PO PRN ×3 (13:48→21:28)
[2019-02-25] MEDS: traZODone 50 MG TABLET PO SCH (21:25)
[2019-02-26] MEDS: ALBUTEROL/IPRATROPIUM 3 ML NEB RESP TX SCH ×4 (01:50→19:45)
[2019-02-26] MEDS: POTASSIUM CHLORIDE 20 MEQ TABLET PO PRN ×2 (03:22→05:51)
[2019-02-26 04:44] LABS: Basophils # 0.1 10*3/uL (0.0-0.2); Basophils % 0.5 % (0.0-0.8); Eosinophils # 0.3 10*3/uL (0.0-0.87); Eosinophils % 2.9 % (0.00-10.9); Hematocrit 30.1 VOL% (35.7-47.0); Hemoglobin 9.3 GM/DL (12.0-16.0); Immature Granulocytes % 0.5 %; Immature Granulocytes Absolute 0.06 #; Lymphocytes # 2.2 10*3/uL (1.4-4.0); Lymphocytes % 19.6 % (21.3-54.2); Mean Corpuscular HGB Conc 30.9 GM/DL (32-36); Mean Corpuscular Volume 93.8 FL (87-102); Mean Platelet Volume 9.9 FL (9.6-12.0); Monocytes % 10.4 % (1.7-12.7); Neutrophils % 66.1 % (38.7-73.9); Platelet Count 335 T/CUMM (130-400); Red Blood Count 3.21 MC/CUMM (3.8-5.5); Red Cell Distribution Width 16.7 % (9.3-17.3); White Blood Count 11.3 T/CUMM (4-12)
[2019-02-26 05:02] LABS: Calcium 8.5 MG/DL (8.5-10.1); Osmolality,Calculated 294.5 MOS/KG (273-304)
[2019-02-26] MEDS: LEVOFLOXACIN INJ 750 MG in PREMIX 1 EACH IV SCH (05:51)
[2019-02-26] MEDS: INSULIN LISPRO 100 UNIT/ML SUBCUT SCH ×4 (08:43→21:34)
[2019-02-26] MEDS: ASPIRIN EC 81 MG TABLET PO SCH (09:00)
[2019-02-26] MEDS: INSULIN GLARGINE 100 UNIT/ML SUBCUT SCH (09:00)
[2019-02-26] MEDS: METOPROLOL TARTRATE 25 MG TABLET PO SCH ×2 (09:00→21:34)
[2019-02-26] MEDS: DONEPEZIL 5 MG TABLET PO SCH (09:00)
[2019-02-26] MEDS: DOCUSATE SODIUM 100 MG CAPSULE PO SCH ×2 (09:01→21:34)
[2019-02-26] MEDS: ENOXAPARIN 30 MG/0.3 ML SYRINGE SUBCUT SCH (09:01)
[2019-02-26] MEDS: predniSONE 5 MG TABLET PO SCH (09:02)
[2019-02-26] MEDS: AZTREONAM 2,000 MG in SODIUM CHLORIDE 0.9% 100 ML IV SCH (12:31)
[2019-02-26] MEDS: FUROSEMIDE 40 MG/4 ML VIAL IV SCH (12:32)
[2019-02-26] MEDS: traZODone 50 MG TABLET PO SCH (21:34)
[2019-02-27] MEDS: ALBUTEROL/IPRATROPIUM 3 ML NEB RESP TX SCH ×3 (00:35→12:50)
[2019-02-27 05:51] LABS: Basophils # 0.1 10*3/uL (0.0-0.2); Basophils % 0.6 % (0.0-0.8); Eosinophils # 0.4 10*3/uL (0.0-0.87); Eosinophils % 3.2 % (0.00-10.9); Hematocrit 31.4 VOL% (35.7-47.0); Immature Granulocytes % 0.4 %; Immature Granulocytes Absolute 0.05 #; Lymphocytes # 1.6 10*3/uL (1.4-4.0); Lymphocytes % 13.5 % (21.3-54.2); Mean Corpuscular HGB Conc 31.8 GM/DL (32-36); Mean Corpuscular Volume 92.6 FL (87-102); Mean Platelet Volume 9.9 FL (9.6-12.0); Neutrophils % 71.3 % (38.7-73.9); Platelet Count 344 T/CUMM (130-400); Red Blood Count 3.39 MC/CUMM (3.8-5.5); Red Cell Distribution Width 16.7 % (9.3-17.3); White Blood Count 11.6 T/CUMM (4-12)
[2019-02-27 06:23] LABS: Osmolality,Calculated 288.5 MOS/KG (273-304)
[2019-02-27] MEDS: INSULIN LISPRO 100 UNIT/ML SUBCUT SCH ×3 (07:46→16:05)
[2019-02-27] MEDS ORDERED: FUROSEMIDE 40 MG/5 ML UDCUP PO SCH (09:00)
[2019-02-27] MEDS: ENOXAPARIN 30 MG/0.3 ML SYRINGE SUBCUT SCH (09:54)
[2019-02-27] MEDS: INSULIN GLARGINE 100 UNIT/ML SUBCUT SCH (09:54)
[2019-02-27] MEDS: ASPIRIN EC 81 MG TABLET PO SCH (09:54)
[2019-02-27] MEDS: METOPROLOL TARTRATE 25 MG TABLET PO SCH (09:54)
[2019-02-27] MEDS: DONEPEZIL 5 MG TABLET PO SCH (09:54)
[2019-02-27] MEDS: predniSONE 5 MG TABLET PO SCH (09:54)
[2019-02-27] MEDS: DOCUSATE SODIUM 100 MG CAPSULE PO SCH (09:54)
[2019-02-27] MEDS ORDERED: TUBERCULIN SKIN TEST 0.1 ML SYRINGE INTRADERM ONE (11:21)
[2019-02-27 12:57] VITALS: BP 121/66
[2019-02-28] MEDS ORDERED: LEVOFLOXACIN INJ 500 MG in PREMIX 1 EACH IV SCH (09:00)
[2019-02-28] MEDS ORDERED: LEVOFLOXACIN 750 MG TABLET PO SCH (09:00)
== END 2019-02-27 16:49 | disposition swing bed (61) | DRG 194 ==
LOC: SUATTDRO 02:22 → N.TELES 02:22
PROVIDERS: ADMIT Internal Medicine; ATTEND Internal Medicine